=== PATIENT | female | born 1960 | race African-American/Black ===

== ENCOUNTER 2016-08-06 10:11 | Emergency (ER) | payer OTHER ==
[2016-08-06 12:10] VITALS: BP 128/78
== END 2016-08-06 12:10 | disposition home or self-care (01) ==
LOC: ED 10:11
DX: F41.9 Anxiety disorder, unspecified (principal); F32.9 Major depressive disorder, single episode, unspecified; R03.0 Elevated blood-pressure reading, without diagnosis of hypertension

== ENCOUNTER 2016-08-12 09:19 | Emergency (ER) | payer OTHER ==
[~2016-08-12] VITALS: Ht 162.6 cm; Wt 65.3 kg
[2016-08-12 10:48] LABS: BASOPHIL % 1.2 % (0-2); PLATELET COUNT 297 x10^3mcL (130-400); RED CELL DISTRIBUTION WIDTH 13.6 % (11.5-14.5)
[2016-08-12 11:10] LABS: UA SPECIFIC GRAVITY >=1.030 (1.005-1.035); microscopic required? YES; urine erythrocyte NEGATIVE (NEGATIVE)
[2016-08-12 12:03] LABS: ALBUMIN 3.9 g/dL (3.4-5.0); ALKALINE PHOSPHATASE 77 U/L (46-116); ALT/SGPT 15 U/L (14-59); AST/SGOT 15 U/L (15-37); BILIRUBIN TOTAL 0.72 mg/dL (0.20-1.00); CALCIUM 9.7 mg/dL (8.5-10.1); CARBON DIOXIDE 24.6 mmol/L (21-32); CHLORIDE SERUM 103 mmol/L (98-107); GFR1 > 60 mL/min; GLUCOSE SERUM 97 mg/dL (74-106); LIPASE 139 IU/L (73-393); POTASSIUM SERUM 3.3 mmol/L (3.5-5.1); SODIUM SERUM 138 mmol/L (136-145); TOTAL PROTEIN, SERUM 7.2 g/dL (6.4-8.2)
[2016-08-12 13:26] VITALS: BP 131/85
== END 2016-08-12 13:26 | disposition home or self-care (01) ==
LOC: ED 09:19
PROVIDERS: Emergency Medicine
DX: K59.00 Constipation, unspecified (principal); F17.210 Nicotine dependence, cigarettes, uncomplicated
CPT/HCPCS: J1885; Q0162

== ENCOUNTER 2016-08-13 17:04 | Emergency (ER) | payer OTHER ==
[~2016-08-13] VITALS: Ht 162.6 cm; Wt 65.8 kg
[2016-08-13 18:36] LABS: microscopic required? YES; urine erythrocyte TRACE (NEGATIVE)
[2016-08-13 18:43] LABS: PLATELET COUNT 299 x10^3mcL (130-400); RED CELL DISTRIBUTION WIDTH 13.7 % (11.5-14.5)
[2016-08-13 18:48] LABS: BASOPHIL % 3.5 % (0-2)
[2016-08-13 18:51] LABS: CALCIUM 9.5 mg/dL (8.5-10.1); CARBON DIOXIDE 33.4 mmol/L (21-32); CHLORIDE SERUM 104 mmol/L (98-107); GFR1 > 60 mL/min; GLUCOSE SERUM 104 mg/dL (74-106); POTASSIUM SERUM 3.7 mmol/L (3.5-5.1); SODIUM SERUM 138 mmol/L (136-145)
[2016-08-13 18:56] LABS: ALBUMIN 3.7 g/dL (3.4-5.0); ALKALINE PHOSPHATASE 77 U/L (46-116); ALT/SGPT 14 U/L (14-59); AMYLASE 53 U/L (25-115); AST/SGOT 13 U/L (15-37); BILIRUBIN TOTAL 0.73 mg/dL (0.20-1.00); LIPASE 140 IU/L (73-393); TOTAL PROTEIN, SERUM 6.9 g/dL (6.4-8.2)
[2016-08-13 20:45] VITALS: BP 128/64
== END 2016-08-13 20:45 | disposition home or self-care (01) ==
LOC: ED 17:04
PROVIDERS: Emergency Medicine
DX: E86.0 Dehydration (principal)
CPT/HCPCS: J2405; J7030

== ENCOUNTER 2017-04-19 08:23 | Emergency (ER) | payer OTHER ==
[2017-04-19 12:14] VITALS: BP 123/85
== END 2017-04-19 12:14 | disposition home or self-care (01) ==
LOC: ED 08:23
DX: B34.9 Viral infection, unspecified (principal); E07.9 Disorder of thyroid, unspecified; F17.210 Nicotine dependence, cigarettes, uncomplicated

== ENCOUNTER 2017-10-15 19:00 | Emergency (ER) | payer OTHER ==
[~2017-10-15] VITALS: Ht 165.1 cm; Wt 75.3 kg
[2017-10-15 19:03] VITALS: Ht 165.1 cm; Wt 75.3 kg
[2017-10-15 22:05] VITALS: BP 136/74
== END 2017-10-15 22:05 | disposition home or self-care (01) ==
LOC: ED 19:00
DX: J98.01 Acute bronchospasm (principal); F17.210 Nicotine dependence, cigarettes, uncomplicated
CPT/HCPCS: 99406; J7512; J7613; J7644

== ENCOUNTER 2017-11-15 14:38 | Emergency (ER) | payer OTHER ==
[~2017-11-15] VITALS: Ht 162.6 cm; Wt 70.8 kg
[2017-11-15 14:44] VITALS: Ht 162.6 cm; Wt 70.8 kg
[2017-11-15 18:02] VITALS: BP 137/61
== END 2017-11-15 18:02 | disposition home or self-care (01) ==
LOC: ED 14:38
DX: R06.02 Shortness of breath (principal); R42 Dizziness and giddiness
CPT/HCPCS: J7512; J7613; J7644

== ENCOUNTER 2018-04-08 07:45 | Inpatient (IN) | payer OTHER ==
[~2018-04-08] VITALS: Ht 165.1 cm; Wt 76.2 kg
[2018-04-08 07:50] VITALS: Ht 165.1 cm; Wt 76.2 kg
[2018-04-08 08:39] LABS: BASOPHIL % 1.4 % (0-2); PLATELET COUNT 331 x10^3mcL (130-400)
[2018-04-08 08:47] LABS: CALCIUM 9.5 mg/dL (8.5-10.1); CARBON DIOXIDE 26.3 mmol/L (21-32); CREATININE SERUM 1.1 mg/dL (0.6-1.0); POTASSIUM SERUM 4.2 mmol/L (3.5-5.1); RED CELL DISTRIBUTION WIDTH 15.3 % (11.5-14.5)
[2018-04-08 08:53] LABS: ALBUMIN 3.8 g/dL (3.4-5.0); BILIRUBIN TOTAL 0.7 mg/dL (0.20-1.00); PHOSPHOROUS 3.3 mg/dL (2.5-4.9); TOTAL PROTEIN, SERUM 7.6 g/dL (6.4-8.2); URIC ACID 5.4 mg/dL (2.6-6.0)
[2018-04-08] MEDS ORDERED: TRAMADOL HCL50 MG PO (09:48)
[2018-04-08] MEDS ORDERED: TIROSINT50 MC1 PO (09:48)
[2018-04-08] MEDS ORDERED: MOT600 PO (09:49)
[2018-04-08] MEDS ORDERED: ASPIR 8181 MG PO (09:49)
[2018-04-08] MEDS ORDERED: D3-50001 TAB PO (09:50)
[2018-04-08] MEDS ORDERED: OYSCO 500500 M1 PO (09:50)
[2018-04-08 11:56] VITALS: BP 125/65
[2018-04-08 13:31] LABS: UA SPECIFIC GRAVITY >=1.030 (1.005-1.035); microscopic required? YES; urine erythrocyte 2+ (NEGATIVE)
[2018-04-08 13:58] LABS: CHOLESTEROL/HDL RATIO 2.9; MAGNESIUM 2.3 mg/dL (1.8-2.4)
[2018-04-08 17:06] VITALS: BP 133/61
[2018-04-08 22:12] VITALS: BP 122/51
[2018-04-09 04:05] LABS: AMPHETAMINE QUAL UR NONE DETECTED (See below)
[2018-04-09 05:49] VITALS: BP 109/62
[2018-04-09 07:38] LABS: CALCIUM 9.4 mg/dL (8.5-10.1); CHLORIDE SERUM 105 mmol/L (98-107); GFR1 > 60 mL/min; GLUCOSE SERUM 85 mg/dL (74-106); POTASSIUM SERUM 3.7 mmol/L (3.5-5.1); SODIUM SERUM 140 mmol/L (136-145)
[2018-04-09 07:41] LABS: BASOPHIL % 0.8 % (0-2); PLATELET COUNT 326 x10^3mcL (130-400); RED CELL DISTRIBUTION WIDTH 15.6 % (11.5-14.5)
[2018-04-09 09:39] VITALS: BP 127/68
[2018-04-09 09:42] VITALS: BP 105/70
[2018-04-09 12:15] VITALS: BP 114/60
[2018-04-09 17:11] VITALS: BP 118/60
[2018-04-09 20:53] VITALS: BP 122/59
[2018-04-10 05:48] VITALS: BP 113/62
[2018-04-10 07:26] LABS: BASOPHIL % 0.7 % (0-2); PLATELET COUNT 300 x10^3mcL (130-400)
[2018-04-10 07:27] LABS: RED CELL DISTRIBUTION WIDTH 15.6 % (11.5-14.5)
[2018-04-10 07:31] LABS: CALCIUM 8.9 mg/dL (8.5-10.1); CARBON DIOXIDE 28.9 mmol/L (21-32); CHLORIDE SERUM 108 mmol/L (98-107); GFR1 > 60 mL/min; GLUCOSE SERUM 98 mg/dL (74-106); POTASSIUM SERUM 4.4 mmol/L (3.5-5.1); SODIUM SERUM 144 mmol/L (136-145)
[2018-04-10 09:34] VITALS: BP 123/63
[2018-04-10 12:33] VITALS: BP 105/58
[2018-04-10 17:10] VITALS: BP 108/69; BP 116/55
[2018-04-10 18:43] VITALS: BP 105/58
== END 2018-04-10 19:16 | disposition home or self-care (01) | DRG 190 ==
LOC: ED 07:45 → DU 09:46
PROVIDERS: Emergency Medicine; Family Medicine
DX: I21.4 Non-ST elevation (NSTEMI) myocardial infarction (principal); E03.9 Hypothyroidism, unspecified; E78.5 Hyperlipidemia, unspecified; Z96.641 Presence of right artificial hip joint; E78.00 Pure hypercholesterolemia, unspecified; F12.90 Cannabis use, unspecified, uncomplicated; N39.0 Urinary tract infection, site not specified; Z79.82 Long term (current) use of aspirin; Z68.27 Body mass index [BMI] 27.0-27.9, adult; Z87.891 Personal history of nicotine dependence; Z79.1 Long term (current) use of non-steroidal anti-inflammatories (NSAID); Z90.11 Acquired absence of right breast and nipple; Z72.89 Other problems related to lifestyle; Z79.899 Other long term (current) drug therapy
CPT/HCPCS: A9500; J0696; J1885; J2060; J2785; J7040

== ENCOUNTER 2018-06-23 15:21 | Emergency (ER) | payer OTHER ==
[~2018-06-23] VITALS: Ht 162.6 cm; Wt 81.6 kg
[~2018-06-23 15:21] MED LIST: ASPIR 8181 MG PO; D3-50001 TAB PO; MOT600 PO; OYSCO 500500 M1 PO; TIROSINT50 MC1 PO; TRAMADOL HCL50 MG PO
[2018-06-23 15:23] VITALS: Ht 162.6 cm; Wt 81.6 kg
[2018-06-23 17:39] VITALS: BP 108/71
== END 2018-06-23 17:39 | disposition home or self-care (01) ==
LOC: ED 15:21
DX: J10.1 Influenza due to other identified influenza virus with other respiratory manifestations (principal); E78.00 Pure hypercholesterolemia, unspecified; Z98.890 Other specified postprocedural states
CPT/HCPCS: 87804; J1885; Q0162

== ENCOUNTER 2018-07-04 16:54 | Emergency (ER) | payer OTHER ==
[~2018-07-04] VITALS: Ht 165.1 cm; Wt 74.8 kg
[2018-07-04 17:11] VITALS: Ht 165.1 cm; Wt 74.8 kg
[2018-07-04 21:48] VITALS: BP 132/78
== END 2018-07-04 21:48 | disposition home or self-care (01) ==
LOC: ED 16:54
DX: B34.9 Viral infection, unspecified (principal); R42 Dizziness and giddiness; E78.00 Pure hypercholesterolemia, unspecified; Z98.890 Other specified postprocedural states
CPT/HCPCS: J1885; Q0162

== ENCOUNTER 2018-10-17 10:11 | Emergency (ER) | payer OTHER ==
[~2018-10-17] VITALS: Ht 170.2 cm; Wt 75.3 kg
[2018-10-17 10:14] VITALS: BP 163/113; Ht 170.2 cm; Wt 75.3 kg
== END 2018-10-17 11:00 | disposition home or self-care (01) ==
LOC: ED 10:11
DX: N39.0 Urinary tract infection, site not specified (principal); R30.0 Dysuria; Z98.890 Other specified postprocedural states; E78.00 Pure hypercholesterolemia, unspecified

== ENCOUNTER 2018-11-06 09:39 | Emergency (ER) | payer OTHER ==
[~2018-11-06] VITALS: Ht 162.6 cm; Wt 74.4 kg
[2018-11-06 09:47] VITALS: Ht 162.6 cm; Wt 74.4 kg
[2018-11-06 10:58] LABS: UA SPECIFIC GRAVITY >=1.030 (1.005-1.035); microscopic required? YES; urine erythrocyte 3+ (NEGATIVE)
[2018-11-06 11:26] VITALS: BP 130/75
== END 2018-11-06 11:26 | disposition home or self-care (01) ==
LOC: ED 09:39
PROVIDERS: Specialist
DX: N39.0 Urinary tract infection, site not specified (principal); E78.00 Pure hypercholesterolemia, unspecified; Z98.890 Other specified postprocedural states
CPT/HCPCS: J1885

== ENCOUNTER 2019-01-31 08:06 | Inpatient (IN) | payer OTHER ==
[~2019-01-31] VITALS: Ht 163.8 cm; Wt 73.0 kg
[2019-01-31 08:16] VITALS: Ht 163.8 cm; Wt 73.0 kg
--- NOTE | 2019-01-31 08:35 | NUR ---
PT. IN ED WITH C/O DYSURIA, FREQUENCY, AND URGENCY SINCE THIS MORNING. REPORTS SHE HAD LEFT HIP REPLACEMENT ON 01/26/19. ALSO STATES SHE HAS BEEN GETTING FREQUENT UTI'S IN THE PAST 6MONTHS AND HAS SEEN UROLOGY. PT. AAOX4, TALKING AND RESPONDING APPROPRIATELY, BREATHING E/U. IM MODERATE DISTRESS. USING WALKER FROM HOME. DR. VIEIRA AT BEDSIDE FOR MSE.
[2019-01-31 09:19] LABS: BASOPHIL % 0.1 % (0-2); RED CELL DISTRIBUTION WIDTH 14.5 % (11.5-14.5)
[2019-01-31 09:21] LABS: PLATELET COUNT 496 x10^3mcL (130-400)
--- NOTE | 2019-01-31 09:26 | NUR ---
ULTRASOUND AT BEDSIDE FOR BLADDER U/S. PER TECH, PT. BLADDER IS EMPTY AND NEEDS TO BE FULL FOR EXAM. STATES HE WILL RETURN IN 30MINS. PT. CALL LIGHT IN REACH AND ADVISED TO CALL STAFF WHEN BLADDER FEELS FULL. WILL CONTINUE TO MONITOR.
[2019-01-31 09:27] LABS: CALCIUM 9.2 mg/dL (8.5-10.1); CARBON DIOXIDE 29.6 mmol/L (21-32); CHLORIDE SERUM 100 mmol/L (98-107); CREATININE SERUM 0.9 mg/dL (0.6-1.0); GFR1 > 60 mL/min; GLUCOSE SERUM 112 mg/dL (74-106); POTASSIUM SERUM 3.3 mmol/L (3.5-5.1); SODIUM SERUM 138 mmol/L (136-145)
[2019-01-31 09:39] LABS: ALKALINE PHOSPHATASE 79 U/L (46-116); ALT/SGPT 21 U/L (14-59); AST/SGOT 27 U/L (15-37); BILIRUBIN TOTAL 0.61 mg/dL (0.20-1.00); T4(THYROXINE) 6.3 ug/dL (4.7-13.3); TOTAL PROTEIN, SERUM 7.6 g/dL (6.4-8.2)
[2019-01-31 09:40] LABS: ALBUMIN 3.1 g/dL (3.4-5.0)
--- NOTE | 2019-01-31 10:03 | NUR ---
PT. C/O PAIN TO HIP AREA, STATES SHE BROUGHT HER HYDROCODONE FROM HOME AND TOOK ONE PILL FOR PAIN. DR. VIEIRA MADE AWARE.
[2019-01-31 10:13] LABS: UA SPECIFIC GRAVITY 1.025 (1.005-1.035); microscopic required? YES; urine erythrocyte 3+ (NEGATIVE)
--- NOTE | 2019-01-31 10:25 | NUR ---
PT. ASSISTED TO BEDSIDE COMMODE, DARK RED BLOODY URINE NOTED. WILL CONTINUE TO MONITOR.
--- NOTE | 2019-01-31 11:20 | NUR ---
PT. LAYING ON GUXENIA IN POSITIN OF COMFORT, BREATHING E/U. NAD. CALL LIGHT IN REACH. WILLL CONTINUE TO MONITOR.
--- NOTE | 2019-01-31 11:47 | NUR ---
PT. REQUEST PYRIDIUM FOR URINARY PAIN. Jose VIEIRA MADE AWARE
--- NOTE | 2019-01-31 12:25 | NUR ---
RECEIVED PATIENT FROM ER NURSE. PATIENT ARRIVD ON GUERNEY AND WALKER. PATIENT AMBULATED INDEPENDENTLY WITH WALKER FROM GUERNEY TO BED. UPON DEPARTURE OF ER NURSE, PATIENT APPEARED TO CRY BUT REMAINED CALM AFTER A FEW MINUTES UPON TAKING VITAL SIGNS. PATIENT VS ARE NORMAL: 97.8 TEMP, 85 HR, 107/68 BP, 100% O2 SAT, 16 RESPIRATIONS. PATIENT HAS HISTORY OF RIGHT HIP REPLACEMENT (01/26) AND SURGICAL SITE IS [facility]. PATIENT AMBULATED INDEPENDENTLY WITH WALKER TO THE RESTROOM AND VOIDED. PATIENT COOPERATED VERY WELL, AND ANSWERED ALL QUESTIONS, AND GAVE HOME MEDICATIONS TO RN FOR MEDICATION RECONCILIATION. PATIENT IS CURRENTLY RESTING, DENIES PAIN OR DISCOMFORT AND IS WATCHING TV. WILL CONTINUE TO ASSESS AND MONITOR.
--- NOTE | 2019-01-31 12:45 | NUR ---
PT. ASSISTEED UP TO BEDSIDE COMMODE. WILL CONTINUE TO MONITOR.
[2019-01-31] MEDS ORDERED: ZOF4 PO (13:41)
[2019-01-31] MEDS ORDERED: LEVOTHYROXINE0.05 M2 PO (13:41)
[2019-01-31] MEDS ORDERED: PERCOCET1 TA5 PO ×2 (13:41→20:29)
[2019-01-31] MEDS ORDERED: PRILOSEC OTC20 M1 PO (13:42)
[2019-01-31] MEDS ORDERED: KEFLEX250 M1 PO (13:42)
[2019-01-31 13:54] LABS: CHOLESTEROL/HDL RATIO 4.4; MAGNESIUM 2.3 mg/dL (1.8-2.4)
--- NOTE | 2019-01-31 14:13 | NUR ---
REPORT GIVEN TO HARRISON HARRIS FOR FURTHER CARE OF PATIENT. ALL QUESTIONS AND CONCERNS ADDRESSED
--- NOTE | 2019-01-31 14:35 | NUR ---
PT. TRANSPORTED TO TELE FLOOR FOR FURTHER CARE AND EVAL. PT. AAOX4, TALKING AND RESPONDING APPROPRIATELY, BREATHING E/U. NAD. HARRISON HARRIS PRESENT AND ASSUMED CARE OF PATIENT.
[2019-01-31] MEDS ORDERED: COLACE100 MG PO (15:18)
--- NOTE | 2019-01-31 15:30 | NUR ---
PATIENT HOME MEDS IN PHARMACY, NARCOTIC PERCOCET COUNTED BY RICH HARRIS AND CATY PHARMACIST. PATIENT HAS A COPY OF THE MEDICATION LIST IN PHARMACY.
[2019-01-31 16:35] VITALS: BP 102/54
[2019-01-31 17:17] VITALS: BP 113/54
--- NOTE | 2019-01-31 18:53 | NUR ---
NURSING CO-SIGN THE DOCUMENTATION ENTERED BY THE IP HAS BEEN REVIEWED. REVIEWED/CO-SIGNED BY: Pooja No DOCUMENTATION DONE BY: HARRISON CONTRERAS RN.
--- NOTE | 2019-01-31 18:54 | NUR ---
PATIENT IS A&OX4, REMAINS FREE FROM PAIN OR DISCOMFORT. PATIENT IS RESTING WHILE WATCHING TELEVISION. ALL CONCERNS & QUESTIONS HAVE BEEN ADDRESSED. WILL CONTINUE TO ADDRESS ANY QUESTIONS AND CONCERNS NEEDED.
--- NOTE | 2019-01-31 19:36 | NUR ---
SHIFT REASSESSMENT DONE.PATIENT ALERT AND ORIENTED.WALKING IN HALLWAY WITH FAMILY MEMBERS.RECENT L HIP SURGERY 01/26/19.NS AT 100 CC/ HOUR.TELE 12 SR.NO CHEST PAIN.REPORT FROM DAY SHIFT SHE REFUSED PICTURE ON SURGERY SITE ON ADMIT.CALL LIGHT IN REACH.
--- NOTE | 2019-01-31 19:36 | NUR ---
SHIFT REASSESSMENT DONE.PATIENT ALERT AND ORIENTED.WALKING WITH FAMILY IN HALLWAY,RECENT R HIP SURGERY.NS AT 100 CC/ HOUR.TELE 12 SR.NO CHEST PAIN.REPORT SAYS SHE REFUSED PICTURE ON ADMIT R HIP SURGERY RECENTLY.CALL LIGHT IN REACH.
--- NOTE | 2019-01-31 20:00 | NUR ---
PATIENT DEMANDING FOR HER PERCOCET,SAYS WE ARE NOT FOLLOWING HER MED FROM [facility],CHARGE NURSE AWARE.WANTING AMBIEN TOO.
[2019-01-31] MEDS ORDERED: NARCAN4 MG NS (20:30)
[2019-01-31] MEDS ORDERED: ASPIR 8181 MG PO (20:31)
[2019-01-31 20:34] VITALS: BP 119/53
--- NOTE | 2019-01-31 21:00 | NUR ---
ALL PM MEDS GIVEN.TALKING TO HER FAMILY/SISTER ON PHONE ABOUT HER MED.
[2019-01-31] MEDS ORDERED: SENNOSIDES-DOC1 EACH PO (21:01)
--- NOTE | 2019-01-31 21:30 | NUR ---
DID GET HER PERCOCET AND AMBIEN AFTER ORDRED BY RESIDENT AT WORK.
--- NOTE | 2019-02-01 01:24 | NUR ---
PATIENT ASSISTED TO BSC,VOIDING MODERATE AMOUNT OF YELLOW URINE.PATIENT NEW PILLOW CASE AND GOWN,STRAIGHTENED BED.MADE COMFORTABLE,OFFERED PAIN PILL AND TAKEN,SWALLOWS WELL.BSC EMPTIED,I AND O MEASURED.
[2019-02-01 05:07] VITALS: BP 126/62
--- NOTE | 2019-02-01 05:28 | NUR ---
PATIENT HAS SMALL BLOOD IN HER TOILET PAPER WHEN SHE WIPED AFETR VOIDING.
--- NOTE | 2019-02-01 05:42 | NUR ---
ALL AM MEDS GIVEN.NS AT 100 CC/ HOUR INFUSING.WALKED IN FRONT OF NURING STATION,TOLERATED WELL,ASSISTED,PUSHING IV PUMP AND IM WITH HER.WILL ENDORSE TO NEXT SHIFT.
[2019-02-01 06:26] LABS: BASOPHIL % 0.4 % (0-2); RED CELL DISTRIBUTION WIDTH 14.5 % (11.5-14.5)
[2019-02-01 06:33] LABS: CALCIUM 8.1 mg/dL (8.5-10.1); CARBON DIOXIDE 28.3 mmol/L (21-32); CHLORIDE SERUM 106 mmol/L (98-107); CREATININE SERUM 0.7 mg/dL (0.6-1.0); GFR1 > 60 mL/min; GLUCOSE SERUM 100 mg/dL (74-106); POTASSIUM SERUM 3.3 mmol/L (3.5-5.1); SODIUM SERUM 141 mmol/L (136-145)
--- NOTE | 2019-02-01 07:35 | NUR ---
RECEIVED PT IN NO ACUTE DISTRESS. RESTING IN BED. AAOX4. RESP EVEN AND UNLABORED ON RA. IVF INFUSING, NO REDNESS OR SWELLING TO IV SITE. SURGICAL DRESSING TO L HIP C/D/I. PT REFUSED TO HAVE DRESSING TAKEN OFF FOR ASSESSMENT. PT ALSO REPORTS SMALL SCRATCH TO L UPPER ARM, MOSS PICKER, REFUSED PICTURES. HOB ELEVATED. FALL PRECAUTIONS IN PLACE. BED IN LOW POSITION, CALL LIGHT WITHIN REACH. WILL CONTINUE TO MONITOR.
[2019-02-01 07:42] LABS: PLATELET COUNT 424 x10^3mcL (130-400)
[2019-02-01 08:29] VITALS: BP 143/68
--- NOTE | 2019-02-01 09:05 | NUR ---
PT WANTED TO LEAVE AMA. STEPHANIE BERNABE AWARE AND SPOKE TO PT REGARDING RISKS OF LEAVING AMA. PT INSISTED ON LEAVING AMA. AMA FORM SIGNED AND PLACED IN CHART. IV DC'D WITH CATHETER INTACT. TELE REMOVED. BELONGINGS WITH PT. PT'S MEDS RETURNED FROM PHARMACY. ELYSIA SULLIVAN ACCOMPANIED PT TO LOBBY.
--- NOTE | 2019-02-01 10:10 | NUR ---
WOUND CONSULT NOT DONE, PT. LEFT AMA.
== END 2019-02-01 09:05 | disposition left against medical advice (07) | DRG 463 ==
LOC: ED 08:06 → DU 13:09
PROVIDERS: Emergency Medicine; ADMIT Family Medicine
DX: N39.0 Urinary tract infection, site not specified (principal); E46 Unspecified protein-calorie malnutrition; N02.9 Recurrent and persistent hematuria with unspecified morphologic changes; D64.9 Anemia, unspecified; E03.9 Hypothyroidism, unspecified; D41.4 Neoplasm of uncertain behavior of bladder; E78.00 Pure hypercholesterolemia, unspecified; E78.5 Hyperlipidemia, unspecified; M54.9 Dorsalgia, unspecified; G89.4 Chronic pain syndrome; Z53.21 Procedure and treatment not carried out due to patient leaving prior to being seen by health care provider; E87.6 Hypokalemia; Z96.643 Presence of artificial hip joint, bilateral; Z87.440 Personal history of urinary (tract) infections
CPT/HCPCS: 76770; 82962; 84439; G0378; J1956; J2185; J7030; Q0092

== ENCOUNTER 2019-08-12 12:56 | Emergency (ER) | payer OTHER, SELFPAY ==
[~2019-08-12] VITALS: Ht 162.6 cm; Wt 69.4 kg
[~2019-08-12 12:56] MED LIST changes: +COLACE100 MG PO; +KEFLEX250 M1 PO; +LEVOTHYROXINE0.05 M2 PO; +NARCAN4 MG NS; +PERCOCET1 TA5 PO; +PRILOSEC OTC20 M1 PO; +SENNOSIDES-DOC1 EACH PO; +ZOF4 PO
[2019-08-12 12:57] VITALS: Ht 162.6 cm; Wt 69.4 kg
[2019-08-12 15:23] VITALS: BP 125/68
== END 2019-08-12 15:23 | disposition home or self-care (01) ==
LOC: ED 12:56
DX: R05 Cough (principal); F17.210 Nicotine dependence, cigarettes, uncomplicated; Z71.6 Tobacco abuse counseling; E78.00 Pure hypercholesterolemia, unspecified; Z20.828 Contact with and (suspected) exposure to other viral communicable diseases; Z98.890 Other specified postprocedural states
CPT/HCPCS: 83880; 85378; 87804; 99406; Q0092